=== PATIENT | male | born 2005 | race Caucasian/White ===

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

== ENCOUNTER 2023-01-19 17:52 | Emergency (ER) | payer OTHER ==
[~2023-01-19] VITALS: Ht 195.6 cm; Wt 124.7 kg
[2023-01-19 18:05] VITALS: BP 127/76
[2023-01-19] MEDS ORDERED: Adderall 15 MG15 MG PO (18:07)
[2023-01-19] MEDS ORDERED: ALBU90OI INH (18:07)
== END 2023-01-19 18:30 | disposition left against medical advice (07) ==
LOC: ER 17:52
DX: T78.1XXA Other adverse food reactions, not elsewhere classified, initial encounter (principal); X58.XXXA Exposure to other specified factors, initial encounter; Z53.21 Procedure and treatment not carried out due to patient leaving prior to being seen by health care provider
CPT/HCPCS: A9270